=== PATIENT | male | born 1995 | race Caucasian/White ===

== ENCOUNTER 2016-10-21 17:48 | Emergency (ER) | payer OTHER ==
[2016-10-21 18:33] VITALS: BP 135/76
== END 2016-10-21 18:33 | disposition home or self-care (01) ==
LOC: ED 17:48
DX: F41.9 Anxiety disorder, unspecified (principal); R03.0 Elevated blood-pressure reading, without diagnosis of hypertension; G40.909 Epilepsy, unspecified, not intractable, without status epilepticus; F32.9 Major depressive disorder, single episode, unspecified

== ENCOUNTER 2016-11-06 15:18 | Emergency (ER) | payer OTHER ==
[~2016-11-06] VITALS: Ht 167.6 cm; Wt 80.3 kg
[2016-11-06 16:26] VITALS: BP 136/81
== END 2016-11-06 16:26 | disposition home or self-care (01) ==
LOC: ED 15:18
DX: R19.7 Diarrhea, unspecified (principal); R56.9 Unspecified convulsions; R03.0 Elevated blood-pressure reading, without diagnosis of hypertension; R11.10 Vomiting, unspecified; Z79.899 Other long term (current) drug therapy

== ENCOUNTER 2016-11-09 17:42 | Emergency (ER) | payer OTHER ==
[~2016-11-09] VITALS: Ht 167.6 cm; Wt 72.6 kg
[2016-11-09 17:54] VITALS: BP 103/75
== END 2016-11-09 19:18 | disposition other institution (70) ==
LOC: ED 17:42
DX: Z02.89 Encounter for other administrative examinations (principal)

== ENCOUNTER 2017-01-07 07:41 | Emergency (ER) | payer MEDICAID ==
[~2017-01-07] VITALS: Ht 167.6 cm; Wt 74.0 kg
[2017-01-07 09:20] VITALS: BP 116/72
== END 2017-01-07 09:20 | disposition home or self-care (01) ==
LOC: ED 07:41
DX: G40.909 Epilepsy, unspecified, not intractable, without status epilepticus (principal); R03.0 Elevated blood-pressure reading, without diagnosis of hypertension

== ENCOUNTER 2017-03-25 20:35 | Emergency (ER) | payer MEDICAID ==
[2017-03-25 21:26] LABS: BASOPHIL % 0.2 % (0-2); PLATELET COUNT 220 x10^3mcL (130-400); RED CELL DISTRIBUTION WIDTH 13.3 % (11.5-14.5)
[2017-03-25 21:41] LABS: CALCIUM 8.8 mg/dL (8.5-10.1); CARBON DIOXIDE 27.9 mmol/L (21-32); CHLORIDE SERUM 105 mmol/L (98-107); CREATININE SERUM 0.8 mg/dL (0.7-1.3); GFR1 > 60 mL/min; GLUCOSE SERUM 101 mg/dL (74-106); POTASSIUM SERUM 3.8 mmol/L (3.5-5.1); SODIUM SERUM 141 mmol/L (136-145)
[2017-03-25 21:46] LABS: ALBUMIN 3.6 g/dL (3.4-5.0); ALKALINE PHOSPHATASE 51 U/L (46-116); ALT/SGPT 30 U/L (16-63); AST/SGOT 26 U/L (15-37); BILIRUBIN TOTAL 0.54 mg/dL (0.20-1.00); MAGNESIUM 2.4 mg/dL (1.8-2.4); TOTAL PROTEIN, SERUM 7.2 g/dL (6.4-8.2)
[2017-03-25 23:13] VITALS: BP 107/47
== END 2017-03-25 23:13 | disposition home or self-care (01) ==
LOC: ED 20:35
PROVIDERS: Emergency Medicine
DX: G40.909 Epilepsy, unspecified, not intractable, without status epilepticus (principal); S16.1XXA Strain of muscle, fascia and tendon at neck level, initial encounter; S09.90XA Unspecified injury of head, initial encounter; Z87.891 Personal history of nicotine dependence; X58.XXXA Exposure to other specified factors, initial encounter; Y93.89 Activity, other specified; Y92.89 Other specified places as the place of occurrence of the external cause; Y99.8 Other external cause status
CPT/HCPCS: J1953; J3490; J7030

== ENCOUNTER 2017-09-09 09:37 | Emergency (ER) | payer MEDICAID ==
[~2017-09-09] VITALS: Ht 172.7 cm; Wt 70.3 kg
[2017-09-09 09:37] VITALS: Ht 172.7 cm; Wt 70.3 kg
[2017-09-09 10:19] LABS: BASOPHIL % 0.5 % (0-2); PLATELET COUNT 189 x10^3mcL (130-400); RED CELL DISTRIBUTION WIDTH 12.6 % (11.5-14.5)
[2017-09-09 11:07] LABS: CALCIUM 8.8 mg/dL (8.5-10.1); CARBON DIOXIDE 24.4 mmol/L (21-32); CHLORIDE SERUM 102 mmol/L (98-107); CREATININE SERUM 1.1 mg/dL (0.7-1.3); GFR1 > 60 mL/min; GLUCOSE SERUM 130 mg/dL (74-106); POTASSIUM SERUM 3.9 mmol/L (3.5-5.1); SODIUM SERUM 140 mmol/L (136-145)
[2017-09-09 11:13] LABS: ALBUMIN 3.9 g/dL (3.4-5.0); ALKALINE PHOSPHATASE 51 U/L (46-116); ALT/SGPT 35 U/L (16-63); AST/SGOT 27 U/L (15-37); BILIRUBIN TOTAL 1.6 mg/dL (0.20-1.00); TOTAL PROTEIN, SERUM 7.2 g/dL (6.4-8.2)
[2017-09-09 14:08] VITALS: BP 101/46
[2017-09-09 14:43] LABS: AMPHETAMINE QUAL UR NONE DETECTED (NEG <=1000)
== END 2017-09-09 14:08 | disposition home or self-care (01) ==
LOC: ED 09:37
PROVIDERS: Emergency Medicine
DX: G40.909 Epilepsy, unspecified, not intractable, without status epilepticus (principal)
CPT/HCPCS: 36415; 83880; G0480

== ENCOUNTER 2017-09-11 17:28 | Emergency (ER) | payer MEDICAID ==
[~2017-09-11] VITALS: Ht 167.6 cm; Wt 72.6 kg
[2017-09-11 17:33] VITALS: Ht 167.6 cm; Wt 72.6 kg
[2017-09-11 19:17] VITALS: BP 128/76
== END 2017-09-11 19:17 | disposition home or self-care (01) ==
LOC: ED 17:28
DX: Z76.0 Encounter for issue of repeat prescription (principal); F32.9 Major depressive disorder, single episode, unspecified

== ENCOUNTER 2018-03-03 19:21 | Emergency (ER) | payer MEDICAID ==
[~2018-03-03] VITALS: Ht 167.6 cm; Wt 79.4 kg
[2018-03-03 19:39] VITALS: BP 135/94; Ht 167.6 cm; Wt 79.4 kg
== END 2018-03-03 20:44 | disposition left against medical advice (07) ==
LOC: ED 19:21
DX: Z53.21 Procedure and treatment not carried out due to patient leaving prior to being seen by health care provider (principal)

== ENCOUNTER 2018-03-03 21:41 | Emergency (ER) | payer MEDICAID ==
[~2018-03-03] VITALS: Ht 167.6 cm; Wt 80.3 kg
[2018-03-03 21:51] VITALS: Ht 167.6 cm; Wt 80.3 kg
[2018-03-04 00:55] VITALS: BP 137/92
== END 2018-03-04 00:55 | disposition home or self-care (01) ==
LOC: ED 21:41
DX: S80.812D Abrasion, left lower leg, subsequent encounter (principal); V09.9XXD Pedestrian injured in unspecified transport accident, subsequent encounter
CPT/HCPCS: J1885

== ENCOUNTER 2018-03-04 14:32 | Emergency (ER) | payer MEDICAID ==
[~2018-03-04] VITALS: Ht 167.6 cm; Wt 80.7 kg
[2018-03-04 14:39] VITALS: Ht 167.6 cm; Wt 80.7 kg
[2018-03-04 16:35] VITALS: BP 128/75
== END 2018-03-04 16:35 | disposition home or self-care (01) ==
LOC: ED 14:32
DX: S22.31XA Fracture of one rib, right side, initial encounter for closed fracture (principal); S90.812A Abrasion, left foot, initial encounter; Z48.02 Encounter for removal of sutures; V43.52XA Car driver injured in collision with other type car in traffic accident, initial encounter; Y93.I9 Activity, other involving external motion; Y92.89 Other specified places as the place of occurrence of the external cause; Y99.8 Other external cause status
CPT/HCPCS: Q0092

== ENCOUNTER 2018-04-14 22:12 | Emergency (ER) | payer MEDICAID ==
[2018-04-14 22:23] VITALS: BP 141/89; Ht 167.6 cm
== END 2018-04-15 00:30 | disposition left against medical advice (07) ==
LOC: ED 22:12
DX: Z53.21 Procedure and treatment not carried out due to patient leaving prior to being seen by health care provider (principal)

== ENCOUNTER 2018-09-25 09:57 | Emergency (ER) | payer MEDICAID ==
[~2018-09-25] VITALS: Ht 175.3 cm; Wt 87.3 kg
[2018-09-25 10:08] VITALS: Ht 175.3 cm; Wt 87.3 kg
[2018-09-25 11:20] LABS: BASOPHIL % 0.5 % (0-2); PLATELET COUNT 212 x10^3mcL (130-400); RED CELL DISTRIBUTION WIDTH 12.6 % (11.5-14.5)
[2018-09-25 11:28] LABS: CALCIUM 8.6 mg/dL (8.5-10.1); CARBON DIOXIDE 29.2 mmol/L (21-32); CHLORIDE SERUM 103 mmol/L (98-107); CREATININE SERUM 0.8 mg/dL (0.7-1.3); GFR1 > 60 mL/min; GLUCOSE SERUM 109 mg/dL (74-106); POTASSIUM SERUM 3.4 mmol/L (3.5-5.1); SODIUM SERUM 138 mmol/L (136-145)
[2018-09-25 11:35] LABS: ALBUMIN 3.5 g/dL (3.4-5.0); ALKALINE PHOSPHATASE 59 U/L (46-116); AST/SGOT 24 U/L (15-37); BILIRUBIN TOTAL 1.1 mg/dL (0.20-1.00); TOTAL PROTEIN, SERUM 6.7 g/dL (6.4-8.2)
[2018-09-25 13:14] LABS: ALT/SGPT 26 U/L (16-63)
[2018-09-25 14:06] VITALS: BP 128/71
== END 2018-09-25 14:55 | disposition home or self-care (01) ==
LOC: ED 09:57
PROVIDERS: Emergency Medicine
DX: R55 Syncope and collapse (principal); F11.90 Opioid use, unspecified, uncomplicated; F32.9 Major depressive disorder, single episode, unspecified; V29.9XXA Motorcycle rider (driver) (passenger) injured in unspecified traffic accident, initial encounter; Y93.89 Activity, other specified; Y92.89 Other specified places as the place of occurrence of the external cause; Y99.8 Other external cause status
CPT/HCPCS: 36415; Q0092

== ENCOUNTER 2018-11-16 10:46 | Emergency (ER) | payer MEDICAID ==
[~2018-11-16] VITALS: Ht 167.6 cm; Wt 92.5 kg
[2018-11-16 11:11] VITALS: Ht 167.6 cm; Wt 92.5 kg
[2018-11-16 13:06] VITALS: BP 130/72
== END 2018-11-16 13:07 | disposition home or self-care (01) ==
LOC: ED 10:46
DX: H01.001 Unspecified blepharitis right upper eyelid (principal); G40.909 Epilepsy, unspecified, not intractable, without status epilepticus; F32.9 Major depressive disorder, single episode, unspecified; F17.210 Nicotine dependence, cigarettes, uncomplicated
CPT/HCPCS: 99406

== ENCOUNTER 2018-12-17 21:50 | Emergency (ER) | payer MEDICAID ==
[~2018-12-17] VITALS: Ht 167.6 cm; Wt 92.5 kg
[2018-12-17 22:04] VITALS: Ht 167.6 cm; Wt 92.5 kg
[2018-12-17 23:29] VITALS: BP 133/84
== END 2018-12-17 23:29 | disposition home or self-care (01) ==
LOC: ED 21:50
DX: L03.112 Cellulitis of left axilla (principal); L03.313 Cellulitis of chest wall; L73.9 Follicular disorder, unspecified; F32.9 Major depressive disorder, single episode, unspecified
CPT/HCPCS: J1885

== ENCOUNTER 2019-01-06 22:43 | Emergency (ER) | payer MEDICAID ==
[~2019-01-06] VITALS: Ht 167.6 cm; Wt 93.0 kg
[2019-01-06 22:55] VITALS: Ht 167.6 cm; Wt 93.0 kg
[2019-01-06 23:43] VITALS: BP 121/72
== END 2019-01-06 23:43 | disposition home or self-care (01) ==
LOC: ED 22:43
DX: M54.5 Low back pain (principal); F32.9 Major depressive disorder, single episode, unspecified; F11.90 Opioid use, unspecified, uncomplicated

== ENCOUNTER 2019-04-15 22:04 | Emergency (ER) | payer OTHER ==
[2019-04-15 22:07] VITALS: Ht 167.6 cm
[2019-04-15 23:23] VITALS: BP 121/78
== END 2019-04-15 23:23 | disposition home or self-care (01) ==
LOC: ED 22:04
DX: S30.812A Abrasion of penis, initial encounter (principal); F32.9 Major depressive disorder, single episode, unspecified; X58.XXXA Exposure to other specified factors, initial encounter; Y93.89 Activity, other specified; Y92.89 Other specified places as the place of occurrence of the external cause; Y99.8 Other external cause status
CPT/HCPCS: 87491; 87591